=== PATIENT | female | born 1980 | race African-American/Black ===

== ENCOUNTER 2017-01-09 12:32 | Emergency (ER) | payer MEDICAID, OTHER ==
[~2017-01-09] VITALS: Ht 170.2 cm; Wt 75.0 kg
[2017-01-09 12:42] VITALS: BP 151/97
== END 2017-01-09 13:49 | disposition home or self-care (01) ==
LOC: ER 12:32
DX: S16.1XXA Strain of muscle, fascia and tendon at neck level, initial encounter (principal); F17.200 Nicotine dependence, unspecified, uncomplicated; W22.03XA Walked into furniture, initial encounter; Y93.89 Activity, other specified; Y92.89 Other specified places as the place of occurrence of the external cause; Y99.8 Other external cause status
CPT/HCPCS: 99282